=== PATIENT | female | born 1985 | race Caucasian/White ===

== ENCOUNTER 2020-04-06 16:53 | Emergency (ER) | payer BC, MEDICAID, OTHER ==
[~2020-04-06] VITALS: Ht 167.6 cm; Wt 111.7 kg
--- NOTE | 2020-04-06 17:30 | NUR ---
assumed care of pt. attempted to enter room for pt assessment, CXR in progress at bedside
[2020-04-06 17:54] LABS: MEAN CORPUSCULAR HEMOGLOBIN 27.8 pg (27.0-34.8); MEAN CORPUSCULAR HGB CONC 33.9 g/dL (32.4-35.8); MEAN PLATELET VOLUME 7.3 fL (7.4-10.4); PLATELET COUNT 550 x10^3/uL (130-400); RED BLOOD COUNT 5.06 x10^6/uL (3.82-5.3); RED CELL DISTRIBUTION WIDTH 13.5 % (9.6-15.2)
[2020-04-06 17:56] LABS: ALBUMIN 3.1 g/dL (3.4-5.0); ANION GAP 12 mmol/L (5-15); CALCIUM 9.2 mg/dL (8.5-10.1); CHLORIDE 107 mmol/L (98-107); CREATININE 1.03 mg/dL (0.55-1.02); MD YES
--- NOTE | 2020-04-06 18:10 | NUR ---
pt here for evaluation D/T +COVID test a couple of weeks ago and still having cough SOB and fatigue. pt walked to room unassisted. pt reports that she was told to come here today by her primary MD. pt is A&O x4. speaking full sentences without difficulty. pt c/o nausea but denies vomiting. WYLIE without difficulty and denies recent fevers. no famil at bedside
--- NOTE | 2020-04-06 18:34 | NUR ---
Dr. Savage has been to bedside for recheck
[2020-04-06 19:02] LABS: BASOS% (MANUAL) 2 % (0-1); EOS% (MANUAL) 2 % (1-7); LYMPH#(MANUAL) 6.36 x10^3/uL (1-3.4); LYMPHS% (MANUAL) 43 % (22-44); MONOS#(MANUAL) 0.59 x10^3/uL (0.3-2.7); MONOS% (MANUAL) 4 % (2-9); SEG#(MANUAL) 7.25 x10^3/uL (1.8-6.8); SEGS% (MANUAL) 49 % (42-75)
[2020-04-06 19:03] VITALS: BP 116/53
[2020-04-06 19:03] LABS: ANISOCYTOSIS 1+
[2020-04-06 19:04] LABS: <PLATELET ESTIMATE> INCREASED; <PLT MORPHOLOGY> NORMAL PLT MORPH
--- NOTE | 2020-04-06 19:25 | NUR ---
this pt was D/C by another RN
== END 2020-04-06 19:14 | disposition home or self-care (01) ==
LOC: ED 17:52
DX: U07.1 COVID-19 (principal); R06.02 Shortness of breath; J06.9 Acute upper respiratory infection, unspecified; J98.8 Other specified respiratory disorders; R53.81 Other malaise; M79.10 Myalgia, unspecified site; R05 Cough; R51.9 Headache, unspecified; R53.83 Other fatigue; J45.909 Unspecified asthma, uncomplicated
CPT/HCPCS: 36415; 71045; 80048; 82040; 85025; 93005; 99285